=== PATIENT | female | born 1980 | race Caucasian/White ===

== ENCOUNTER 2016-12-15 02:48 | Emergency (ER) | payer MEDICAID ==
[~2016-12-15] VITALS: Ht 167.6 cm; Wt 74.8 kg
[2016-12-15 02:50] VITALS: BP 160/90
--- NOTE | 2016-12-15 03:32 | NUR ---
PT TAKEN TO BED 3 Addendum: 12/15/16 at 0333 by SUZIE PT TAKEN TO BED 5
--- NOTE | 2016-12-15 03:38 | NUR ---
Dr. Ross evaluating patient at bedside.
--- NOTE | 2016-12-15 03:40 | NUR ---
36/F c/o right rib pain at 1900 this evening. Pt states "I was moving an AC unit and I didn't realize how heavy it was." Pt c/o worsening pain with deep inhalation. AOX4, ambulatory with steady gait. VSS.
[2016-12-15] MEDS ORDERED: HYDROcodone/APAP 5/325 MG 1 TAB TAB PO ONE (03:45)
--- NOTE | 2016-12-15 03:48 | NUR ---
X-Ray at bedside.
[2016-12-15 04:21] VITALS: BP 154/88
--- NOTE | 2016-12-15 04:21 | NUR ---
Patient discharged with v/s stable. Written and verbal after care instructions given and explained. Patient verbalized understanding. Ambulatory with steady gait. All questions addressed prior to discharge. Advised to follow up with PMD.
== END 2016-12-15 04:21 | disposition home or self-care (01) ==
LOC: MED 02:48
DX: S20.211A Contusion of right front wall of thorax, initial encounter (principal); Z88.6 Allergy status to analgesic agent; Z90.89 Acquired absence of other organs; W18.30XA Fall on same level, unspecified, initial encounter; Y93.89 Activity, other specified; Y92.89 Other specified places as the place of occurrence of the external cause; Y99.8 Other external cause status
CPT/HCPCS: 71010; 99283; Q0092

== ENCOUNTER 2016-12-23 10:49 | Emergency (ER) | payer MEDICAID ==
[~2016-12-23] VITALS: Ht 167.6 cm; Wt 74.4 kg
[2016-12-23 11:27] VITALS: BP 139/81
--- NOTE | 2016-12-23 12:12 | NUR ---
PATIENT TO BED 7 AT THIS TIME.
--- NOTE | 2016-12-23 12:18 | NUR ---
36F BIB SELF C/O COCCYX PAIN, NON-RADIATING, THROBBING, 5/10 X 0700 TODAY S/P SLIP AND FALL ON PORCH; PT STATES NO LOC AT TIME OF INCIDENT; NO ERYTHEMA OR SWELLING NOTED TO SITE AT THIS TIME; PT AA&OX4, PERRLA, BL LUNG SOUNDS CLEAR, RR EVEN/UNLABORED, SKIN IS WARM/DRY/INTACT AT THIS TIME; PT STATES NO N/V/D AT THIS TIME; STEADY GAIT; PT RESTIN IN BED WITH HOB ELEVATED AND IN LOWEST POSITION; POSITIONED FOR COMFORT; ER MD MADE AWARE OF STATUS. WILL CONTINUE TO MONITOR.
--- NOTE | 2016-12-23 12:23 | NUR ---
ER MD DR. HANNAH EVALUATING PT AT BEDSIDE.
--- NOTE | 2016-12-23 12:36 | NUR ---
PT LEFT WITHOUT DISCHARGE PAPERWORK. NO DISCHARGE INSTRUCTIONS GIVEN TO PATIENT. MD DR. HANNAH NOTIFIED.
== END 2016-12-23 12:36 | disposition home or self-care (01) ==
LOC: MED 10:49
DX: S30.0XXA Contusion of lower back and pelvis, initial encounter (principal); Z88.5 Allergy status to narcotic agent; Z88.8 Allergy status to other drugs, medicaments and biological substances; W01.0XXA Fall on same level from slipping, tripping and stumbling without subsequent striking against object, initial encounter; Y93.89 Activity, other specified; Y92.89 Other specified places as the place of occurrence of the external cause; Y99.8 Other external cause status
CPT/HCPCS: 99281